=== PATIENT | female | born 1950 | race Caucasian/White ===

== ENCOUNTER 2018-02-08 07:39 | Day surgery (SDC) | payer MEDICARE ==
[2018-02-08] MEDS ORDERED: Lactated Ringer's 500 ML IV SCH (10:15)
[2018-02-08] MEDS ORDERED: Lactated Ringer's 1,000 ML IV ONE (10:15)
[2018-02-08] MEDS ORDERED: Midazolam 2 MG/2 ML VIAL ONE (10:16)
[2018-02-08] MEDS ORDERED: Propofol 10 mg/ml Inj (20 ML) ONE (10:16)
[2018-02-08] MEDS ORDERED: Lidocaine Hydrochloride 5 ML INJ ONE (10:23)
[2018-02-08 10:51] VITALS: TEMP 97.8
[2018-02-08 11:32] VITALS: BP 106/56; PULSE 66; RESP 15; O2SAT 100
== END 2018-02-08 11:45 | disposition home or self-care (01) ==
LOC: C.ENDO 07:39
PROVIDERS: ATTEND Internal Medicine Gastroenterology
DX: Z12.11 Encounter for screening for malignant neoplasm of colon (principal); Z80.0 Family history of malignant neoplasm of digestive organs; K64.1 Second degree hemorrhoids
CPT/HCPCS: 45378; J2250; J2704; J7120